=== PATIENT | female | born 1985 | race Caucasian/White ===

== ENCOUNTER 2017-11-13 18:52 | Emergency (ER) | payer OTHER ==
[2017-11-13] MEDS ORDERED: Ondansetron INJ* 2 MG/ML VIAL IV ONE (19:54)
[2017-11-13] MEDS ORDERED: Morphine INJ* 4 MG/ML 1 ML CARPUJECT IV ONE (19:54)
[2017-11-13] MEDS ORDERED: NS 0.9% 1000 ML* 2,000 ML IV ONE (19:54)
[2017-11-13 20:15] LABS: ABS Basophils 0.2 10^3/ul (0-0.2); ABS Eosinophils 0 10^3/ul (0-0.6); ABS Lymphocytes 2.5 10^3/ul (1.0-4.8); ABS Monocytes 0.6 10^3/ul (0-0.8); ABS Neutrophils 12.1 10^3/ul (1.5-7.7); ABS Nucleated RBC 0 10^3/ul; Eosinophil % 0.1 % (0-6); Hematocrit 41 % (35-47); Hemoglobin 13.7 g/dl (12.0-16.0); Lymphocyte % 16.3 % (25-47); Mean Corpuscular HGB Conc 34 g/dl (31-36); Mean Corpuscular Hemoglobin 29 pg (27-31); Mean Corpuscular Volume 86 fL (80-97); Mean Platelet Volume 8 um3 (7.4-10.4); Nucleated Red Blood Cells % 0; Platelet Count 367 10^3/ul (150-450); Red Blood Count 4.76 10^6/ul (4.0-5.4); Red Cell Distribution Width 14 % (10.5-15); White Blood Count 15.3 10^3/ul (3.5-10.8)
[2017-11-13 20:30] LABS: EGFR Non-African American 113.8 (>60); INR 0.88 (0.77-1.02)
[2017-11-13] MEDS ORDERED: HYDROmorphone INJ* 1 MG/ML CARPUJECT SYRINGE IV ONE (20:51)
[2017-11-13 21:27] LABS: Urine Appearance Clear; Urine Blood 3+ (Negative); Urine Color Straw; Urine Ketones 1+ (Negative); Urine Protein Negative (Negative); Urine Specific Gravity 1.011 (1.010-1.030); Urine Urobilinogen Negative (Negative)
--- NOTE | 2017-11-13 21:47 | RAD ---
INDICATION: LEFT lower quadrant, pelvic, flank pain. IUD placed one month ago. COMPARISON: November 10, 2017 pelvic ultrasound documenting the IUD within the endometrial cavity and complex follicular/hemorrhagic cyst of the LEFT ovary. TECHNIQUE: Multidetector CT images were obtained from the lung bases to the ischial tuberosities. Evaluation of the viscera is limited without IV contrast. Multiplanar reformation. REPORT: Unremarkable visualized inferior thorax. Decreased density of the liver consistent with fatty infiltration with focal sparing at the gallbladder fossa. The liver measures 20.[address] abnormality of the gallbladder, pancreas, spleen. Negative for CT abnormality of the upper GI, small bowel, diminutive medially extending appendix, or colon. Physiologic range small volume of free fluid in the cul-de-sac. Negative for free air or significant hernias. Normal adrenal glands. Negative for urolithiasis or hydronephrosis. Unremarkable nondilated ureters and partially distended urinary bladder. LEFT pelvic phlebolith noted. IUD appears in appropriate position within the anteverted uterus. Unremarkable RIGHT adnexal region. Enlarged LEFT ovary with dominant 4.2 x 3.4 x 4.4 cm maximum dimension cyst corresponding with recent ultrasound finding. The LEFT ovary measures up to 5.9 x 4.5 x 5.2 cm increased from 5.1 x 2.7 x 4.2 cm on the recent ultrasound. Negative for lymphadenopathy. Normal diameter abdominal aorta and iliac arteries. Physiologic distention of the IVC. Bilateral chronic appearing L5 spondylolysis and grade 1 L5-S1 anterolisthesis. IMPRESSION: 1. Fatty infiltration of the liver. 2. The IUD appears in appropriate position in the endometrial cavity. 3. Further interval enlargement of the LEFT ovary compared with the November 10, 2017 exam likely secondary to interval enlargement of a hemorrhagic cyst. If there is clinical concern for ovarian torsion assessment with ultrasound would be suggested.
--- NOTE | 2017-11-13 22:02 | ED ---
Son Hewitt Julia, scribed for Raymond Frye MD on 11/13/17 at 2022 . Abdominal Pain/Female - HPI Summary HPI Summary: This patient is a 31 year old F presenting to [facility] with a chief complaint of intermittent LLQ abdominal pain characterized as pressure worsening since yesterday. The patient rates the pain 10/10 in severity for the past 3 hours. Symptoms aggravated by nothing. Symptoms alleviated by nothing. Patient reports nausea, vomiting, fever, chills, and vaginal bleeding. Patient denies burning with urination. Patient reports that she has been lightly bleeding for the past two weeks due to recent IUD implantation. Patient is unsure is vomiting is related to pain severity. - History of Current Complaint Chief Complaint: EDAbdPain Stated Complaint: LT LOWER ABD PAIN Time Seen by Provider: 11/13/17 19:46 Hx Obtained From: Patient Onset/Duration: Gradual Onset, Lasting Hours Timing: Intermittent Episode Lasting - never completely resides Severity Currently: Severe Pain Intensity: 10 Pain Scale Used: 0-10 Numeric Location: Discrete At: LLQ Character: Other: - pressure Aggravating Factor(s): Nothing Alleviating Factor(s): Nothing Associated Signs and Symptoms: Positive: Other: - nausea, vomiting, fever, chills, and vaginal bleeding Allergies/Adverse Reactions: Allergies Allergy/AdvReac Type Severity Reaction Status Date / Time No Known Allergies Allergy Verified 11/13/17 19:02 PMH/Surg Hx/FS Hx/Imm Hx Sensory History: Denies: Hx Legally Blind EENT History: Denies: Hx Deafness Infectious Disease History: No Infectious Disease History: Denies: Traveled Outside the [place] in Last 30 Days - Family History Known Family History: Positive: Diabetes - paternal - Social History Alcohol Use: Occasionally Hx Substance Use: No Substance Use Type: Reports: None Hx Tobacco Use: No Smoking Status (MU): Never Smoked Tobacco Review of Systems Positive: Fever, Chills Positive: Abdominal Pain - LLQ, Vomiting, Nausea Positive: other - vaginal bleeding All Other Systems Reviewed And Are Negative: Yes Physical Exam - Summary Physical Exam Summary: General: well-appearing, moderate to severe pain distress Skin: warm, color reflects adequate perfusion, dry, dry oral mucosa Head: normal Eyes: EOMI, JAYY ENT: normal Neck: supple, nontender Respiratory: CTA, breath sounds present Cardiovascular: RRR Abdomen: soft, LLQ tenderness Bowel: hypo-active bowel sounds Musculoskeletal: normal, strength/ROM intact Neurological: normal, sensory/motor intact, A&O x3 Psychological: affect/mood appropriate Triage Information Reviewed: Yes Vital Signs On Initial Exam: Initial Vitals Temp Pulse Resp BP Pulse Ox 96.7 F 92 18 157/107 99 11/13/17 18:59 11/13/17 18:59 11/13/17 18:59 11/13/17 18:59 11/13/17 18:59 Vital Signs Reviewed: Yes Diagnostics - Vital Signs Vital Signs Temp Pulse Resp BP Pulse Ox 11/13/17 18:59 96.7 F 92 18 157/107 99 - Laboratory Lab Results: Lab Results 11/13/17 11/13/17 11/13/17 Range/Units 20:00 20:00 20:00 WBC (3.5-10.8) 10^3/ul RBC (4.0-5.4) 10^6/ul Hgb (12.0-16.0) g/dl Hct (35-47) % MCV (80-97) fL MCH (27-31) pg MCHC (31-36) g/dl RDW (10.5-15) % Plt Count (150-450) 10^3/ul MPV (7.4-10.4) um3 Neut % (Auto) (38-83) % Lymph % (Auto) (25-47) % [place] % (Auto) (1-9) % Eos % (Auto) (0-6) % Baso % (Auto) (0-2) % Absolute Neuts (auto) (1.5-7.7) 10^3/ul Absolute Lymphs (auto) (1.0-4.8) 10^3/ul Absolute Monos (auto) (0-0.8) 10^3/ul Absolute Eos (auto) (0-0.6) 10^3/ul Absolute Basos (auto) (0-0.2) 10^3/ul Absolute Nucleated RBC 10^3/ul Nucleated RBC % INR (Anticoag Therapy) 0.88 (0.77-1.02) APTT 30.4 (26.0-36.3) seconds Sodium 132 L (133-145) mmol/L Potassium 3.8 (3.5-5.0) mmol/L Chloride 99 L (101-111) mmol/L Carbon Dioxide 24 (22-32) mmol/L Anion Gap 9 (2-11) mmol/L BUN 12 (6-24) mg/dL Creatinine 0.62 (0.51-0.95) mg/dL Est GFR ( Amer) 146.4 (>60) Est GFR (Non-Af Amer) 113.8 (>60) BUN/Creatinine Ratio 19.4 (8-20) Glucose 108 H (70-100) mg/dL Lactic Acid 2.0 (0.5-2.0) mmol/L Calcium 9.9 (8.6-10.3) mg/dL Total Bilirubin 0.40 (0.2-1.0) mg/dL AST 20 (13-39) U/L ALT 39 (7-52) U/L Alkaline Phosphatase 69 (34-104) U/L C-Reactive Protein 4.21 (< 5.00) mg/L Total Protein 8.0 (6.4-8.9) g/dL Albumin 4.4 (3.2-5.2) g/dL Globulin 3.6 (2-4) g/dL Albumin/Globulin Ratio 1.2 (1-3) Lipase 14 (11.0-82.0) U/L Beta HCG, Quant 0.63 mIU/mL Urine Color Urine Appearance Urine pH (5-9) Ur Specific [place] (1.010-1.030) Urine Protein (Negative) Urine Ketones (Negative) Urine Blood (Negative) Urine Nitrate (Negative) Urine Bilirubin (Negative) Urine Urobilinogen (Negative) Ur Leukocyte Esterase (Negative) Urine WBC (Auto) (Absent) Urine RBC (Auto) (Absent) Ur Squamous Epith Cells (Absent) Urine Bacteria (Absent) Urine Glucose (Negative) 11/13/17 11/13/17 Range/Units 20:00 21:00 WBC 15.3 H (3.5-10.8) 10^3/ul RBC 4.76 (4.0-5.4) 10^6/ul Hgb 13.7 (12.0-16.0) g/dl Hct 41 (35-47) % MCV 86 (80-97) fL MCH 29 (27-31) pg MCHC 34 (31-36) g/dl RDW 14 (10.5-15) % Plt Count 367 (150-450) 10^3/ul MPV 8 (7.4-10.4) um3 Neut % (Auto) 78.8 (38-83) % Lymph % (Auto) 16.3 L (25-47) % [place] % (Auto) 3.6 (1-9) % Eos % (Auto) 0.1 (0-6) % Baso % (Auto) 1.2 (0-2) % Absolute Neuts (auto) 12.1 H (1.5-7.7) 10^3/ul Absolute Lymphs (auto) 2.5 (1.0-4.8) 10^3/ul Absolute Monos (auto) 0.6 (0-0.8) 10^3/ul Absolute Eos (auto) 0 (0-0.6) 10^3/ul Absolute Basos (auto) 0.2 (0-0.2) 10^3/ul Absolute Nucleated RBC 0 10^3/ul Nucleated RBC % 0 INR (Anticoag Therapy) (0.77-1.02) APTT (26.0-36.3) seconds Sodium (133-145) mmol/L Potassium (3.5-5.0) mmol/L Chloride (101-111) mmol/L Carbon Dioxide (22-32) mmol/L Anion Gap (2-11) mmol/L BUN (6-24) mg/dL Creatinine (0.51-0.95) mg/dL Est GFR ( Amer) (>60) Est GFR (Non-Af Amer) (>60) BUN/Creatinine Ratio (8-20) Glucose (70-100) mg/dL Lactic Acid (0.5-2.0) mmol/L Calcium (8.6-10.3) mg/dL Total Bilirubin (0.2-1.0) mg/dL AST (13-39) U/L ALT (7-52) U/L Alkaline Phosphatase (34-104) U/L C-Reactive Protein (< 5.00) mg/L Total Protein (6.4-8.9) g/dL Albumin (3.2-5.2) g/dL Globulin (2-4) g/dL Albumin/Globulin Ratio (1-3) Lipase (11.0-82.0) U/L Beta HCG, Quant mIU/mL Urine Color Straw Urine Appearance Clear Urine pH 7.0 (5-9) Ur Specific [place] 1.011 (1.010-1.030) Urine Protein Negative (Negative) Urine Ketones 1+ H (Negative) Urine Blood 3+ H (Negative) Urine Nitrate Negative (Negative) Urine Bilirubin Negative (Negative) Urine Urobilinogen Negative (Negative) Ur Leukocyte Esterase Negative (Negative) Urine WBC (Auto) Trace(0-5/hpf) (Absent) Urine RBC (Auto) 3+(>10/hpf) H (Absent) Ur Squamous Epith Cells Present H (Absent) Urine Bacteria Absent (Absent) Urine Glucose Negative (Negative) Result Diagrams: 11/13/17 20:00 11/13/17 20:00 Lab Statement: Any lab studies that have been ordered have been reviewed, and results considered in the medical decision making process. - CT A/P CT Interpretation Completed By: Radiologist - 1. Fatty infiltration of the liver. 2. The IUD appears in appropriate position in the endometrial cavity. 3. Further interval enlargement of the LEFT ovary compared with the November 10, 2017 exam likely secondary to interval enlargement of a hemorrhagic cyst. If there is clinical concern for ovarian torsion assessment with ultrasound would be suggested. ED Physician has reviewed this report. Abdominal Pain Fem Course/Dx - Course Course Of Treatment: DISCUSSED RESULTS OF LABS AND CT WITH PATIENT AND HER PARTNER. U/S PENDING AT SHIFT CHANGE. - Diagnoses Provider Diagnoses: Pelvic pain, LLQ abdominal pain Discharge - Discharge Plan Condition: Stable Disposition: OTHER Discharge Disposition Comment: This patient was signed out from Dr. Frye, awaiting Transvaginal US. Referrals: Kit Cordova MD [Primary Care Provider] - The documentation as recorded by the Son hartmann Julia accurately reflects the service I personally performed and the decisions made by , Raymond Frye MD.
[2017-11-13] MEDS ORDERED: HYDROmorphone INJ* 2 MG/ML CARPUJECT SYRINGE IV SLOW PU ONE (22:59)
[2017-11-14] MEDS ORDERED: cefTRIAXone VIAL(*) 250 MG VIAL IM ONE (01:33)
[2017-11-14] MEDS ORDERED: DOXYcycline CAP(*) 100 MG PO ONE (01:33)
[2017-11-14] MEDS ORDERED: Lidocaine 1% INJ* 10 MG/ML 30 ML SDV INJ ONE (01:54)
[2017-11-14] MEDS ORDERED: Lidocaine 1%* 5 ML VIAL ONE (01:56)
[2017-11-14] MEDS ORDERED: HYDROmorphone INJ* 2 MG/ML CARPUJECT SYRINGE IV SLOW PU ONE (01:58)
--- NOTE | 2017-11-14 02:02 | ED ---
Marcelina, Raf Betancur, scribed for Ivon Monahan MD on 11/14/17 at 0118 . Progress - Progress Note Progress Note: This patient was signed out from Dr. Frye, pending disposition, awaiting US. US reveals incomplete evaluation of the left adenxal complex fluid. there is a complex cystic structure in the left ovary without torsion. There is complex fluid adjacent to the left ovary. On some images this complex appears to have tuular configuration suggesting possible tubo-ovarian absess or hydro-/ pyosalpynx. correlation with history, infectious disease progress comment pelvic exam is recommended. Evluation of complete imaging set is recommended. Pelvic exam performed with Sofya: external genitalia is normal, she does have mucus discharge that is orderless, unable to palpate cervix to the patients size , no CMT. she does has LLQ ABD pain. PROCEDURE: IUD was removed with out complications. The patients condition is stable and will be discharged to home with Dx of PID. Course/Dx - Course Course Of Treatment: DISCUSSED RESULTS OF LABS AND CT WITH PATIENT AND HER PARTNER. U/S PENDING AT SHIFT CHANGE. - Diagnoses Provider Diagnoses: Pelvic pain, LLQ abdominal pain, PID (acute pelvic inflammatory disease) - Provider Notifications Discussed Care Of Patient With: Ervin Dixon Time Discussed With Above Provider: 01:24 Instructed by Provider To: Other - Dr Dixon suggested to take out her IUD and give her out patient antibiotics. The documentation as recorded by the Pipe hartmann Gabriel accurately reflects the service I personally performed and the decisions made by , Ivon Monahan MD.
[2017-11-14 02:15] VITALS: BP 132/81
--- NOTE | 2017-11-14 07:33 | RAD ---
INDICATION: Left lower quadrant pain evaluate for ectopic . COMPARISON: Comparison is made with prior pelvic ultrasound study from December 11, [address] of the abdomen and pelvis from November 13, 2017. TECHNIQUE: Multiple real-time transvaginal images of the pelvis were obtained. FINDINGS: The uterus is normal in size, shape and echogenicity. The uterus measured 9.1 x 3.2 x 4.1 cm. The endometrial echo measured 0.5 cm in thickness. There is a T-shaped IUD present. The right ovary measured 3.8 x 2.5 x 2.2 cm. The left ovary measured 5.1 x 6.0 x 4.2 cm. There is a moderate amount of free intraperitoneal fluid noted in the cul-de-sac and both adnexal regions. There is a complex left ovarian cyst measuring 4.8 x 3.8 x 3.7 cm. There is also a less well-defined complex fluid collection adjacent to the left ovary possibly representing a hydrosalpinx. The results of this examination were discussed with Dr. San in the emergency department. IMPRESSION: 1. 1 COMPLEX LEFT OVARIAN CYST AND ADJACENT CYSTIC STRUCTURE POSSIBLY REPRESENTING A HYDROSALPINX. RECOMMEND A FOLLOW-UP PELVIC ULTRASOUND IN 1-2 MONTHS TIME TO DEMONSTRATE RESOLUTION. 2. IUD IN PLACE. NO INTRAUTERINE GESTATIONAL SAC IS SEEN. DIFFERENTIAL DIAGNOSIS WOULD INCLUDE SPONTANEOUS MISCARRIAGE OR ECTOPIC . RECOMMEND CORRELATION WITH QUANTITATIVE BETA HCG AND FOLLOW-UP TRANSVAGINAL PELVIC STUDIES NEEDED.
== END 2017-11-14 02:46 ==
LOC: ED 18:52
DX: R10.2 Pelvic and perineal pain (principal); R10.32 Left lower quadrant pain; N73.9 Female pelvic inflammatory disease, unspecified
CPT/HCPCS: 36415; 74176; 76830; 80053; 81003; 81015; 83605; 83690; 84702; 85025; 85610; 85730; 86140; 87480; 87491; 87510; 87591; 87661; 96374; 96375; 99283; A9270-GY; J0696; J1170; J2270; J2405

== ENCOUNTER 2017-11-15 05:24 | Observation (INO) | payer OTHER ==
[2017-11-15] MEDS ORDERED: Metoclopramide IV* 5 MG/ML 2 ML VIAL IV ONE (05:41)
[2017-11-15] MEDS ORDERED: NS 0.9% 1000 ML* 1,000 ML IV ONE ×2 (05:41→06:49)
[2017-11-15] MEDS ORDERED: Morphine INJ* 4 MG/ML 1 ML CARPUJECT IV PRN (05:41)
[2017-11-15] MEDS ORDERED: Ketorolac INJ* 30 MG/ML 1 ML VIAL IV ONE (05:41)
[2017-11-15] MEDS ORDERED: Ketorolac INJ* 60 MG/2 ML VIAL ONE (06:02)
[2017-11-15] MEDS ORDERED: Morphine INJ* 4 MG/ML 1 ML CARPUJECT ONE (06:05)
[2017-11-15 06:15] LABS: ABS Basophils 0.1 10^3/ul (0-0.2); ABS Eosinophils 0 10^3/ul (0-0.6); ABS Lymphocytes 2.4 10^3/ul (1.0-4.8); ABS Monocytes 1.1 10^3/ul (0-0.8); ABS Neutrophils 14.1 10^3/ul (1.5-7.7); ABS Nucleated RBC 0.01 10^3/ul; Eosinophil % 0.1 % (0-6); Hematocrit 39 % (35-47); Hemoglobin 13.1 g/dl (12.0-16.0); Lymphocyte % 13.6 % (25-47); Mean Corpuscular HGB Conc 33 g/dl (31-36); Mean Corpuscular Hemoglobin 29 pg (27-31); Mean Corpuscular Volume 86 fL (80-97); Mean Platelet Volume 8 um3 (7.4-10.4); Nucleated Red Blood Cells % 0; Platelet Count 323 10^3/ul (150-450); Red Blood Count 4.56 10^6/ul (4.0-5.4); Red Cell Distribution Width 14 % (10.5-15); White Blood Count 17.7 10^3/ul (3.5-10.8)
[2017-11-15 07:35] LABS: Urine Appearance Cloudy; Urine Blood 3+ (Negative); Urine Color Red; Urine Ketones Negative (Negative); Urine Protein 2+(100 mg/dL) (Negative); Urine Specific Gravity 1.017 (1.010-1.030); Urine Urobilinogen Negative (Negative)
--- NOTE | 2017-11-15 07:47 | ED ---
Juvenal Hewitt Angela, scribed for Gay Moreno MD on 11/15/17 at 0707 . Progress - Progress Note Progress Note: This pt was signed out from Dr. Monahan, pending disposition, awaiting transvaginal US and consult from [employer] OFFICER Call from Dr. Galaviz - Dr. John will come eval pt 0745 - Pt in ultrasound. Introduced myself to other in room. Transvaginal US, as read by radiologist: IMPRESSION: Compared to previous exam of November 13, 2017 the left ovary appears to be enlarged when compared to prior exam. Additionally there is left ovarian cyst measuring up to 4.8 x 3.3 x 4.4 cm. No evidence of flow is noted. This is consistent with left ovarian torsion. Dr. Moreno has reviewed this radiology report. 08:25 - I spoke with Dr. John, she is coming to see the pt in the ED. 08:26 - I spoke with Dr. Colunga, who reports the US results. 08:27 - Pt is tesfaye of ovarian torsion. Pt is aware of Dr. John coming now. Last solid last night. Last water 2 hours ago. Pt is NPO now. Pt declined need for additional analgesia, antiemetic 0845: Dr. John at bedside - pt is unsure if would like procedure here or fly back to [place] - risks discussed with pt - will talk with family and decide 9:45am Pt in agreement for procedure here at [facility] Admit to Dr. Albrecht Dx: ovarian torsion Course/Dx - Diagnoses Provider Diagnoses: Pelvic pain, Ovarian cyst, Ovarian torsion The documentation as recorded by the Juvenal hartmann Angela accurately reflects the service I personally performed and the decisions made by me, Gay Moreno MD.
--- NOTE | 2017-11-15 08:21 | RAD ---
Indication: Evaluate for ovarian torsion. Real-time sonography of the pelvis was performed utilizing endovaginal technique. Comparison is made with previous exam dated November 13, 2017. The uterus measures 7.8 x 3.5 x 4.8 cm. Endometrial echo measures 6.2 mm. Right ovary measures 3.4 x 2.3 x 2.1 cm. Doppler interrogation demonstrates flow in the right ovary. Left ovary measures 8.5 x 4.1 x 6.1 cm. When compared to prior exam the left ovary is enlarged. Doppler interrogation demonstrates no flow in the left ovary. This may represent torsion. IMPRESSION: Compared to previous exam of November 13, 2017 the left ovary appears to be enlarged when compared to prior exam. Additionally there is left ovarian cyst measuring up to 4.8 x 3.3 x 4.4 cm. No evidence of flow is noted. This is consistent with left ovarian torsion. Portia the charge nurse in the emergency room was notified of the results at 8:17 AM.
[2017-11-15] MEDS ORDERED: ceFOXitin 2 GM IVPREMIX* 2 GM/50 ML BAG ONE (10:25)
[2017-11-15] MEDS ORDERED: Buffered Lidocaine 0.9% SYRIN* 5 ML/SYR SYRINGE ONE (10:29)
[2017-11-15] MEDS ORDERED: Scopolamine 1.5 mg* PATCH ONE (10:30)
[2017-11-15] MEDS ORDERED: Bupivacaine 0.5% SDV PF* 10-30ML VIAL ONE (10:31)
[2017-11-15] MEDS ORDERED: fentaNYL* 50 MCG/ML 2 ML VIAL (100 MCG VIAL) ONE (11:16)
[2017-11-15] MEDS ORDERED: Bupivacaine 0.25% SDV* 30 ML ONE (11:16)
[2017-11-15] MEDS ORDERED: Propofol* 10 MG/ML 20 ML BTL IV PUSH ONE (11:37)
[2017-11-15] MEDS ORDERED: Succinylcholine* 20 MG/ML 10 ML VIAL ONE (11:37)
[2017-11-15] MEDS ORDERED: Lidocaine 2% PF * 5 ML VIAL ONE (11:37)
[2017-11-15] MEDS ORDERED: oxyCODONE/Acetamin 5/325 MG* TAB PO PRN ×2 (11:55→14:57)
[2017-11-15] MEDS ORDERED: DiMENhydriNATE IV* 50 MG/ML VIAL IV PUSH PRN (11:55)
[2017-11-15] MEDS: fentaNYL* 50 MCG/ML 2 ML VIAL (100 MCG VIAL) IV PRN ×2 (13:15→13:25)
[2017-11-15] MEDS: oxyCODONE/Acetamin 5/325 MG* TAB PO PRN ×3 (15:28→23:51)
[2017-11-15] MEDS: Ibuprofen TAB* 600 MG PO SCH ×2 (15:30→20:47)
--- NOTE | 2017-11-16 02:20 | OP ---
DATE OF OPERATION: 11/15/17 - ROOM #341 DATE OF : 89 SURGEON: Ирина John MD FACILITIES CLERK: Zoë Beck MD ANESTHESIOLOGIST: Dr. Barrow. ANESTHESIA: General with local. PRE-OP DIAGNOSIS: Left ovarian torsion. POST-OP DIAGNOSIS: Left ovarian torsion. OPERATIVE PROCEDURE: Laparoscopic left salpingo-oophorectomy. ESTIMATED BLOOD LOSS: Minimal. URINE OUTPUT: 400 cc of clear yellow urine. FLUIDS: 900 cc of crystalloid. FINDINGS: Revealed a necrotic left adnexal mass with no identifiable ovarian tissue or left fallopian tube. Small adhesion of the descending colon to this necrotic mass. Normal appearing right tube and ovary. Normal appearing uterus. Normal appearing bowel. Normal appearing appendix. Normal appearing liver edge. COMPLICATIONS: None apparent. DISPOSITION: Stable to recovery room. DESCRIPTION OF PROCEDURE: The patient was placed in dorsal lithotomy position. Legs were placed in Blanchard Kar stirrups. The abdomen and perineum were prepped and draped in the sterile standard fashion. The patient was identified with universal protocol for correct position, patient and procedure. A Aguilar catheter was placed using sterile technique. A sterile speculum was then inserted. Cervix was visualized and Hulka clamp was placed. Sterile speculum was removed. Attention was then focused to the abdominal portion of the case. 8 cc of Marcaine 0.25% was applied to the infraumbilical area. An incision was made using 11 scalpel blade and the fascia was identified with Kochers, grasped and then the fascial incision was made using a scalpel. The fascia was then tagged with 0 Biosyn. The peritoneum was then entered bluntly and the blunt 10 mm port was then inserted and balloon insufflated. A pneumo-peritoneum was created and laparoscopic evaluation confirmed excellent placement of trocar. At that point, a decision was made to place two 5 mm trocar and trocar sheath done inferiorly and laterally to the umbilical port site. 6 cc of 0.25% Marcaine was applied and incision was made and 5 mm trocar and trocar sheath was placed under direct visualization. This process was repeated first on the right and then repeated on the left. A blunt probe was then inserted confirming this large necrotic left ovarian mass with no evidence of ovarian tissue, completely replaced with hemorrhage and necrosis. The right tube and ovary were noted to have a normal appearance and uterus noted to have a normal appearance. There was a small adhesion of the left bowel to the necrotic, former left adnexa. These filmy adhesions were taken down sharply with Endoshears. Hemostasis was noted. At that point, the torsion could be reduced. There were several x2 torsions of the IP ligament. At that point, a LigaSure was applied across the IP ligament and ovarian ligament for complete removal of this necrotic adnexal mass. A 5-mm camera was then used and a 10-mm port was used for the Endobag. The mass was placed within the Endobag. The Endobag was then removed. The necrotic mass needed to be taken apart in pieces while remaining in the EndoCatch at the umbilical site with removal of the 10- mm trocar. The specimen was then delivered in the bag until the 10-mm trocar and trocar sheath were then inserted and balloon was insufflated again. Converted back to 10 mm scope, confirming excellent hemostasis along the left IP ligament and the ovarian ligament. Lavage was performed. The right tube and ovary again was visualized and noted to have a normal appearance. There were some blebs along the length of the fallopian tube, but there was no evidence of scarring and the fimbria looked healthy and the ovary looked very healthy. The appendix looked very normal and the bowel looked normal along with the liver edge. At that point, the 5 mm trocar and trocar sheath was removed under direct visualization. Pneumoperitoneum was released and the 10 mm trocar sheath was removed under direct visualization. The fascia was then reapproximated with 0 Biosyn stay sutures and a small defect was reapproximated using [id number] 0 Biosyn for complete closure of the fascia. The skin was then reapproximated using 4-0 Monocryl in a subcuticular fashion at the umbilical port site and the 2 lateral port sites. Hemostasis was noted. Mastisol and Steri's were applied. The Hulka clamp was then removed under direct visualization without complications. The patient was returned to dorsal lithotomy position and taken to recovery room in stable condition. All sponge, needle, instrument, and blade counts were correct throughout the entirety of the case and the patient tolerated the procedure well. [id number]/[facility] #: [id number] [facility]IAL HOSPITALJerrica
[2017-11-16] MEDS: Ibuprofen TAB* 600 MG PO SCH ×2 (02:57→09:15)
[2017-11-16 05:15] LABS: Hematocrit 32 % (35-47); Hemoglobin 10.5 g/dl (12.0-16.0); Mean Corpuscular HGB Conc 33 g/dl (31-36); Mean Corpuscular Hemoglobin 29 pg (27-31); Mean Corpuscular Volume 86 fL (80-97); Mean Platelet Volume 8 um3 (7.4-10.4); Platelet Count 250 10^3/ul (150-450); Red Blood Count 3.66 10^6/ul (4.0-5.4); Red Cell Distribution Width 14 % (10.5-15); White Blood Count 13.3 10^3/ul (3.5-10.8)
[2017-11-16] MEDS ORDERED: Levothyroxine TAB* 75 MCG TAB PO SCH (10:00)
--- NOTE | 2017-11-16 10:03 | DCNOTE ---
S: pt feeling better today. Pain controlled on PO meds. Dm reg diet w/out n/ v. +flatus. out of bed walking and to bathroom. Exam Gen: NAD Abd: soft, ND, mildly tender with more around umbilical incision. Dressing clean and dry Ext: No edema or calf tenderness Assessment: 31yo P0 admitted with left ovarian torsion, POD#1 s/p lap LSO. Pt is doing well Plan: d/c home on Motrin, percocet. Doxy discontinued as elevated WBC more likely related to torsion and necrotic ovary than PID. WBC almost normal today. Discharge plan and instructions reviewed with pt and .
--- NOTE | 2017-11-16 10:03 | DS ---
Admit dx: left ovarian torsion Discharge dx: left ovarian torsion procedure: Lap LSO Condition: stable Discharge disposition: home
[2017-11-16] MEDS: oxyCODONE/Acetamin 5/325 MG* TAB PO PRN (10:38)
[2017-11-16 10:39] VITALS: BP 104/51
--- NOTE | 2017-11-17 23:46 | ED ---
Pipe Hewitt Gabriel, scriblucie for Ivon Monahan MD on 11/15/17 at 0543 . GI/ HPI - HPI Summary HPI Summary: This patient is a 31 year old F presenting to [facility] accompanied by her boyfriend with a chief complaint of inability to completely void bladder since [employer]. The patient rates the pain 9/10 in severity and describes it as throbbing. Patient reports dysuria. She states she feels like she cannot empty her bladder and uses the bathroom every hour and only produces a very small amount. The patient has been seen twice in the ED this week for abdominal pain. She states her pain has increased and her pain medication is not working. - History of Current Complaint Chief Complaint: EDUrogenitalProblems Time Seen by Provider: 11/15/17 05:41 Stated Complaint: UROGENITAL PROBLEMS Hx Obtained From: Patient Onset/Duration: Started Hours Ago, Still Present Timing: Constant Severity: Severe Current Severity: Severe Pain Intensity: 9 Location of Pain: Suprapubic Associated Signs and Symptoms: Positive: Dysuria - Allergy/Home Medications Allergies/Adverse Reactions: Allergies Allergy/AdvReac Type Severity Reaction Status Date / Time No Known Allergies Allergy Verified 11/15/17 05:29 PMH/Surg Hx/FS Hx/Imm Hx Respiratory History: Denies: Hx Chronic Obstructive Pulmonary Disease (COPD) Sensory History: Denies: Hx Legally Blind, Hx Deafness Opthamlomology History: Denies: Hx Legally Blind Infectious Disease History: No Infectious Disease History: Denies: Traveled Outside the [place] in Last 30 Days - Family History Known Family History: Positive: Diabetes - paternal - Social History Alcohol Use: Occasionally Hx Substance Use: No Substance Use Type: Reports: None Hx Tobacco Use: No Smoking Status (MU): Never Smoked Tobacco Review of Systems Positive: Abdominal Pain Positive: dysuria All Other Systems Reviewed And Are Negative: Yes Physical Exam - Summary Physical Exam Summary: VITAL SIGNS: Reviewed. GENERAL: Patient is a well-developed and nourished female who is lying comfortable in the stretcher. Patient is not in any acute respiratory distress. HEAD AND FACE: No signs of trauma. No ecchymosis, hematomas or skull depressions. No sinus tenderness. EYES: PERRLA, EOMI x 2, No injected conjunctiva, no nystagmus. EARS: Hearing grossly intact. Ear canals and tympanic membranes are within normal limits. MOUTH: Oropharynx within normal limits. NECK: Supple, trachea is midline, no adenopathy, no JVD, no carotid bruit, no c- spine tenderness, neck with full ROM. CHEST: Symmetric, no tenderness at palpation LUNGS: Clear to auscultation bilaterally. No wheezing or crackles. CVS: Regular rate and rhythm, S1 and S2 present, no murmurs or gallops appreciated. ABDOMEN: Soft, with suprapubic tenderness. No signs of distention. No rebound no guarding, and no masses palpated. Bowel sounds are normal. EXTREMITIES: FROM in all major joints, no edema, no cyanosis or clubbing. NEURO: Alert and oriented x 3. No acute neurological deficits. Speech is normal and follows commands. SKIN: Dry and warm Bed side US reveals 30cc of urine Triage Information Reviewed: Yes Vital Signs On Initial Exam: Initial Vitals Temp Pulse Resp BP Pulse Ox 99.1 F 113 18 129/82 99 11/15/17 05:27 11/15/17 05:27 11/15/17 05:27 11/15/17 05:27 11/15/17 05:27 Vital Signs Reviewed: Yes Diagnostics - Vital Signs Vital Signs Temp Pulse Resp BP Pulse Ox 11/15/17 05:27 99.1 F 113 18 129/82 99 - Laboratory Lab Results: Lab Results 11/15/17 11/15/17 11/15/17 Range/Units 05:55 05:55 07:20 WBC 17.7 H (3.5-10.8) 10^3/ul RBC 4.56 (4.0-5.4) 10^6/ul Hgb 13.1 (12.0-16.0) g/dl Hct 39 (35-47) % MCV 86 (80-97) fL MCH 29 (27-31) pg MCHC 33 (31-36) g/dl RDW 14 (10.5-15) % Plt Count 323 (150-450) 10^3/ul MPV 8 (7.4-10.4) um3 Neut % (Auto) 79.5 (38-83) % Lymph % (Auto) 13.6 L (25-47) % Mobile % (Auto) 6.2 (1-9) % Eos % (Auto) 0.1 (0-6) % Baso % (Auto) 0.6 (0-2) % Absolute Neuts (auto) 14.1 H (1.5-7.7) 10^3/ul Absolute Lymphs (auto) 2.4 (1.0-4.8) 10^3/ul Absolute Monos (auto) 1.1 H (0-0.8) 10^3/ul Absolute Eos (auto) 0 (0-0.6) 10^3/ul Absolute Basos (auto) 0.1 (0-0.2) 10^3/ul Absolute Nucleated RBC 0.01 10^3/ul Nucleated RBC % 0 Sodium 133 (133-145) mmol/L Potassium 3.6 (3.5-5.0) mmol/L Chloride 99 L (101-111) mmol/L Carbon Dioxide 26 (22-32) mmol/L Anion Gap 8 (2-11) mmol/L BUN 9 (6-24) mg/dL Creatinine 0.61 (0.51-0.95) mg/dL Est GFR ( Amer) 149.1 (>60) Est GFR (Non-Af Amer) 116.0 (>60) BUN/Creatinine Ratio 14.8 (8-20) Glucose 108 H (70-100) mg/dL Calcium 9.7 (8.6-10.3) mg/dL Total Bilirubin 0.70 (0.2-1.0) mg/dL AST 16 (13-39) U/L ALT 30 (7-52) U/L Alkaline Phosphatase 67 (34-104) U/L C-Reactive Protein 71.42 H (< 5.00) mg/L Total Protein 8.0 (6.4-8.9) g/dL Albumin 4.3 (3.2-5.2) g/dL Globulin 3.7 (2-4) g/dL Albumin/Globulin Ratio 1.2 (1-3) Urine Color Red A Urine Appearance Cloudy Urine pH 7.0 (5-9) Ur Specific [place] 1.017 (1.010-1.030) Urine Protein 2+(100 mg/dl) H (Negative) Urine Ketones Negative (Negative) Urine Blood 3+ H (Negative) Urine Nitrate Negative (Negative) Urine Bilirubin Negative (Negative) Urine Urobilinogen Negative (Negative) Ur Leukocyte Esterase Trace H (Negative) Urine WBC (Auto) 3+(>20/hpf) H (Absent) Urine RBC (Auto) 3+(>10/hpf) H (Absent) Urine Bacteria Absent (Absent) Urine Glucose Negative (Negative) Result Diagrams: 11/16/17 04:40 11/15/17 05:55 Lab Statement: Any lab studies that have been ordered have been reviewed, and results considered in the medical decision making process. GIGU Course/Dx - Diagnoses Provider Diagnoses: Pelvic pain, Ovarian cyst, Ovarian torsion - Physician Notifications Discussed Care Of Patient With: Chepe Galaviz Time Discussed With Above Provider: 06:46 Instructed by Provider To: Other - They have agreed to come see the patient in the ED and requests a pelvic US be done. Discharge - Discharge Plan Condition: Fair Disposition: ADMITTED TO [facility] Discharge Disposition Comment: Patient is signed out to Dr. Moreno, pending disposition, awaiting US The documentation as recorded by the Pipe hartmann Gabriel accurately reflects the service I personally performed and the decisions made by , Ivon Monahan MD.
== END 2017-11-16 11:45 | disposition home or self-care (01) ==
LOC: ED 05:24 → OR 10:39 → MEDTELE 14:17 → SSU 14:23
PROVIDERS: ADMIT Obstetrics & Gynecology; ATTEND Obstetrics & Gynecology
PROC: 0UT64ZZ Resection of Left Fallopian Tube, Percutaneous Endoscopic Approach (ICD-10-PCS; 2017-11-15)
PROC: 0UT14ZZ Resection of Left Ovary, Percutaneous Endoscopic Approach (ICD-10-PCS; principal; 2017-11-15 10:30)
DX: N83.512 Torsion of left ovary and ovarian pedicle (principal); N83.202 Unspecified ovarian cyst, left side
CPT/HCPCS: 36415; 76830; 80053; 81003; 81015; 81025; 85025; 85027; 86140; 87086; 88305; 96374; 96375; 99283; A9270-GY; G0378; J0330; J0694; J1885; J2270; J2704; J2765; J3010